=== PATIENT | male | born 1960 | race African-American/Black ===

== ENCOUNTER 2020-12-08 09:01 | Emergency (ER) | payer SELFPAY ==
--- NOTE | 2020-12-08 09:10 | Emergency Department Report ---
ED Fall HPI - General Stated Complaint: FALL, LEFT EYE INJURY Time Seen by Provider: 12/08/20 09:04 - History of Present Illness Initial Comments: Patient presents with injuries from a fall. History is obtained from EMS initially and then with translation later. Patient had fallen at the [facility]. Mechanism of fall was unknown. He had struck his head on the left. He complained of right rib pain on inspiration. There was no reported loss of co nsciousness. He is not anticoagulated. EMS states that they did use a Maldivian lang interpreter, through the primary care physician's office, to get history. With a medical diagnostic radiographer, patient states that he had tripped and fallen. He complained of rib pain. Patient states that he had fallen again. Patient came here for evaluation. He is complaining primarily of right rib pain. He did hit his head but has no headache. He denies blurry vision or double vision. He has no shortness of breath. There is no abdominal pain. He does have known cirrhosis. He states that he had fluid drained last week. He thinks it might be time to get fluid drained again soon. He is not having abdominal pain. There is no fevers or chills. He did not have chest pain or palpitations prior to the fall. - Related Data Home Medications Medication Instructions Recorded Confirmed Last Taken Benzonatate 100 mg PO TID PRN 12/08/20 12/08/20 Unknown Furosemide 40 mg PO BID 12/08/20 12/08/20 Unknown Lactulose 20 mg PO DAILY 12/08/20 12/08/20 Unknown Midodrine HCl 5 mg PO TID 12/08/20 12/08/20 Unknown Spironolactone 100 mg PO DAILY 12/08/20 12/08/20 Unknown Previous Rx's Medication Instructions Recorded Last Taken Type oxyCODONE [roxiCODONE] 5 mg PO Q6HR PRN #14 tablet 12/08/20 Unknown Rx Allergies Allergy/AdvReac Type Severity Reaction Status Date / Time No Known Allergies Allergy Verified 12/08/20 09:21 ED Review of Systems ROS: Stated complaint: FALL, LEFT EYE INJURY Other details as noted in HPI Comment: All other systems reviewed and negative Constitutional: denies: fever Eyes: denies: eye pain ENT: denies: throat pain Respiratory: denies: cough Cardiovascular: denies: chest pain Endocrine: denies: unexplained weight loss Gastrointestinal: denies: abdominal pain Genitourinary: denies: hematuria Musculoskeletal: denies: back pain Skin: denies: rash Neurological: denies: headache Hematological/Lymphatic: denies: easy bruising ED Past Medical Hx - Past Medical History Previous Medical History?: Yes Additional medical history: Cirrhosis, Covid - Family History Family history: no significant - Social History Smoking Status: Never Smoker Substance Use Type: None - Medications Home Medications: Home Medications Medication Instructions Recorded Confirmed Last Taken Type Benzonatate 100 mg PO TID PRN 12/08/20 12/08/20 Unknown History Furosemide 40 mg PO BID 12/08/20 12/08/20 Unknown History Lactulose 20 mg PO DAILY 12/08/20 12/08/20 Unknown History Midodrine HCl 5 mg PO TID 12/08/20 12/08/20 Unknown History Spironolactone 100 mg PO DAILY 12/08/20 12/08/20 Unknown History oxyCODONE [roxiCODONE] 5 mg PO Q6HR PRN #14 tablet 12/08/20 Unknown Rx ED Physical Exam - General Limitations: Language Barrier (Public Works Manager requested), Other (Pulse ox was noted) General appearance: alert, in distress (Moderate discomfort), obese (Moderate) - Head Head exam: Present: other (Left lateral periorbital contusion and temporal c ontusion. There is no laceration. There is no midface instability. There is no sign of right-sided head trauma.) - Eye Eye exam: Present: normal appearance, PERRL, EOMI, scleral icterus (Bilateral) - ENT ENT exam: Present: normal exam, mucous membranes dry, normal external ear exam - Neck Neck exam: Present: normal inspection. Absent: meningismus - Respiratory Respiratory exam: Present: normal lung sounds bilaterally, chest wall tenderness (Right lower ribs without crepitus). Absent: respiratory distress - Cardiovascular Cardiovascular Exam: Present: regular rate, normal rhythm - GI/Abdominal GI/Abdominal exam: Present: soft, distended (Moderate), tenderness (Mild right upper quadrant) - Extremities Exam Extremities exam: Present: normal capillary refill. Absent: pedal edema - Back Exam Back exam: Absent: CVA tenderness (R), CVA tenderness (L) - Neurological Exam Neurological exam: Present: alert - Psychiatric Psychiatric exam: Present: normal affect, normal mood - Skin Skin exam: Present: warm, dry ED Course Vital Signs 12/08/20 12/08/20 12/08/20 10:48 10:57 11:00 Temperature 97.8 F Pulse Rate 107 H 102 H Respiratory 18 18 Rate Blood Pressure 109/79 Blood Pressure 109/79 [Left] O2 Sat by Pulse 97 98 98 Oximetry - Reevaluation(s) Reevaluation #1: 12/08/20 09:09 EMS was met upon arrival. [place]ian medical diagnostic radiographer was requested. Reevaluation #2: 12/08/20 10:00 Chest x-ray was noted. CT was reviewed. CT of the abdomen has been added on. Reevaluation #3: 12/08/20 13:40 CT abdomen and pelvis was noted. There is no intra-abdominal injury. Patient was subsequently discharged. ED Medical Decision Making - Lab Data Result diagrams: 12/08/20 10:17 12/08/20 10:17 Rhythm strip: Normal sinus rhythm without ectopy. Monitor observe 10 seconds. - Radiology Data Radiology results: report reviewed - Medical Decision Making Patient presents secondary to a fall with injuries. He did sustain a minor contusion to the left lateral face area in the periorbital region. There is no loss of consciousness. He is awake and lucid. He is conversant. There is no focal neurologic finding. I do not believe this represents subdural or epi dural. I do not believe CT would be necessary. Patient did have right rib fractures. There is no evidence of pneumothorax. CT was obtained which failed to demonstrate any type of hepatic injury or intra-abdominal injury otherwise. Patient does have a thrombocytopenia which appears to be chronic. Despite this, there is no evidence of bleeding internally. Patient was discharged with outpatient follow-up. He is amenable with outpatient follow-up for paracentesis. He can use ice for pain. He can keep any abrasions clean. He will utilize analgesics without Tylenol. Critical Care Time: No Critical care attestation.: If time is entered above; I have spent that time in minutes in the direct care of this critically ill patient, excluding procedure time. ED Disposition Clinical Impression: General weakness Fall Qualifiers: Encounter type: initial encounter Qualified Code(s): W19.XXXA - Unspecified fall, initial encounter Rib fractures Qualifiers: Encounter type: initial encounter Fracture type: closed Laterality: right Qualified Code(s): S22.41XA - Multiple fractures of ribs, right side, initial encounter for closed fracture Facial contusion Qualifiers: Encounter type: initial encounter Qualified Code(s): S00.83XA - Contusion of other part of head, initial encounter Ascites Qualifiers: Ascites type: other type Qualified Code(s): R18.8 - Other ascites Disposition: 01 HOME / SELF CARE / HOMELESS Is pt being admited?: Yes Condition: Stable Instructions: How to Use Cold Therapy, [id number], Fatigue, Weakness, Adwf-lb-Brdl, Contusion, Lowc-lh-Pqan, Ascites, Rib Fracture, [id number]-[id number] Additional Instructions: Apply ice to sore areas. Drink plenty water. Return for problems. Continue home medication. Follow-up with your regular doctor for recheck. If you do not have a regular doctor, follow-up with the referral physician. Prescriptions: oxyCODONE [roxiCODONE] 5 mg PO Q6HR PRN #14 tablet PRN Reason: Pain Referrals: CORDELL CAMARA MD [Primary Care Provider] - 3-5 Days BRANDI REYNOSO MD [Staff Physician] - 3-5 Days
--- NOTE | 2020-12-08 09:43 | XRay Report ---
XR chest routine 2V INDICATION / CLINICAL INFORMATION: Right rib trauma COMPARISON: None available. FINDINGS: SUPPORT DEVICES: None. HEART / MEDIASTINUM: No significant abnormality. LUNGS / PLEURA: Lungs are clear. Costophrenic sulci are sharp. No pneumothorax. RIBS: There are 2 adjacent right lateral lower rib fractures. IMPRESSION: 1. Acute fracture of 2 right lower lateral ribs. No pneumothorax. Signer Name: Philip Garcia MD Signed: 12/08/2020 9:38 AM Workstation Name: [id number]
--- NOTE | 2020-12-08 10:19 | Cat Scan Report ---
CT head/brain wo con INDICATION: Fall, possible loss of consciousness`. TECHNIQUE: Routine CT head. All CT scans at this location are performed using CT dose reduction for A SAVANNA by means of automated exposure control. COMPARISON: None. FINDINGS: Intracranial: Mathias-white matter differentiation is maintained. No intracranial hemorrhage. No extra a xial collection. No hydrocephalus. No herniation. Sinuses: Mild mucosal thickening left maxillary sinus. Otherwise, paranasal sinuses and mastoid air c ells are essentially clear. Orbits: Globes are intact. Calvarium: No acute fracture. IMPRESSION: 1. No acute intracranial abnormality. Signer Name: Philip Garcia MD Signed: 12/08/2020 10:14 AM Workstation Name: [id number]
[2020-12-08 10:39] LABS: Hematocrit 39.4 % (35.5-45.6); Hemoglobin 13.7 gm/dl (11.8-15.2); Mean Corpuscular HGB Conc 35 % (32-34); Mean Corpuscular Volume 98 fl (84-94); Red Blood Count 4.04 M/mm3 (3.65-5.03); Red Cell Distribution Width 19.8 % (13.2-15.2)
[2020-12-08 10:41] LABS: Platelet Count 52 K/mm3 (140-440)
[2020-12-08 10:51] VITALS: BP 109/79
[2020-12-08 10:57] LABS: Alanine Aminotransferase 46 units/L (7-56); Albumin 3.1 g/dL (3.9-5); BUN/Creatinine Ratio 20; Blood Urea Nitrogen 20 mg/dL (9-20); Calcium 8.6 mg/dL (8.4-10.2); Hemolysis Index 4
--- NOTE | 2020-12-08 13:19 | Cat Scan Report ---
CT ABDOMEN AND PELVIS WITH CONTRAST INDICATION: Trauma CONTRAST: 100 cc Omnipaque 300 IV COMPARISON: None available. All CT scans at this location are performed using CT dose reduction for ALARA by means of automated e xposure control. FINDINGS: No fractures are seen. In the posterior aspects of both polo moderate focal areas of sclero sis are seen, irregular in the right, and measuring 15 mm in greatest diameter in the left and 12 mm in the right. No similar areas of sclerosis are seen. Lung bases show moderate chronic changes including what is probably peripheral fibrosis and scarring. Bilateral lower lobe atelectasis is seen and pneumonic type infiltrate and/or contusion is not exclu ded in the right lower lobe. A small right pleural effusion is seen measuring water density. No pneum othorax is noted. No pneumoperitoneum is seen. Massive ascites is noted which is of water density. Liver is small and c irrhotic in appearance. Spleen shows borderline increase in volume and has a length of 13.4 cm and is prominent relative to the liver size. No focal hepatic or splenic abnormalities are seen. Prominent splenic and mild gastric varices are seen and esophageal varices are moderately prominent. Umbilical hernia is seen measuring 4 cm filled with ascitic fluid. No evidence of organ injury is identified. Small right renal cyst is seen. Left adrenal shows a 2.2 c m mostly hypodense mass with an internal density measuring 51 Hounsfield units which is indeterminate . This mass has a slightly heterogenous appearance with internal septations or perhaps mild internal vascularity visible. Right adrenal shows no lesions. No other abdominal masses are seen. Gallbladder and bile ducts appear within normal limits. No retroperitoneal hemorrhage is seen. Small nodes in the retroperitoneum are not pathologically enla rged. No pelvic hematoma is identified. No mesenteric hemorrhage is obvious. Urinary bladder distende d but shows no obvious traumatic abnormalities. No bowel or urinary obstructive changes are seen. Desiree endix appears within normal limits. IMPRESSION: 1. No definite acute traumatic abnormalities are seen within the abdomen or pelvis 2. Atelectasis versus infiltrate in the right base with small right pleural effusion. Possibly the in filtrates in could relate to mild contusion but no other evidence of trauma is identified in the thor ax. 3. No fractures are seen. Bilateral iliac sclerotic lesions are noted which are of unknown chronicity . Follow-up is recommended given the size and irregularity as above. 4. Cirrhosis with portal hypertension including esophageal varices 5. Massive ascites 6. Indeterminate left adrenal mass. Recommend follow-up. Signer Name: Tj Alves MD Signed: 12/08/2020 1:15 PM Workstation Name: [id number]
== END 2020-12-08 17:43 | disposition home or self-care (01) ==
LOC: ED 09:01
DX: S22.31XA Fracture of one rib, right side, initial encounter for closed fracture (principal); S00.83XA Contusion of other part of head, initial encounter; R53.1 Weakness; R18.8 Other ascites; W01.0XXA Fall on same level from slipping, tripping and stumbling without subsequent striking against object, initial encounter; Y93.89 Activity, other specified; Y92.89 Other specified places as the place of occurrence of the external cause; Y99.8 Other external cause status
CPT/HCPCS: 36415; 70450; 71046; 74177; 80053; 85027; 99284; Q9967